=== PATIENT | female | born 1990 | race American Indian/Alaskan Native ===

== ENCOUNTER 2017-06-04 16:58 | Inpatient (IN) | payer MEDICAID ==
[2017-06-04] MEDS ORDERED: Sodium Chloride 0.9% 10 ML Syringe FLUSH PRN ×2 (17:37→20:39)
[2017-06-04] MEDS ORDERED: cefTRIAXone 2 GM Vial IVPUSH ONE (17:38)
[2017-06-04] MEDS ORDERED: Sodium Chloride 0.9% 1,000 ML IV ONE (17:38)
[2017-06-04] MEDS ORDERED: Ondansetron 4 MG/2 ML SDV IV ONE (17:38)
[2017-06-04 18:11] LABS: CHLORIDE,CL 99 mmol/L (101-111); SODIUM,NA 131 mmol/L (135-145)
[2017-06-04] MEDS ORDERED: Acetaminophen 325 MG Tab PO ONE (18:21)
[2017-06-04] MEDS ORDERED: Potassium Chloride 10 MEQ in Premix Bag 1 BAG IV ONE (18:27)
[2017-06-04] MEDS ORDERED: Lidocaine 1% 30 ML SDV INJECT ONE (18:28)
--- NOTE | 2017-06-04 18:37 | EDM.PDOC ---
Scribed by Mally Sherwood 06/04/17 [id number] for Toney Ventura MD ED HPI GENERAL MEDICAL PROBLEM - General Chief Complaint: Flank Pain Stated Complaint: FEVER,VOMITING [id number] Time Seen by Provider: 06/04/17 17:15 Source of Information: Reports: Patient, RN, RN Notes Reviewed History Limitations: Reports: No Limitations - History of Present Illness INITIAL COMMENTS - FREE TEXT/NARRATIVE: Patient presents with onset of symptoms of UTI with rapid development of fever, chills, nausea, vomiting and right flank pain. Today she was unable to keep anything down including Tylenol and came to the ER. She states that the symptoms are similar to a past kidney infection. Duration: Getting Worse Location: Reports: Other (right flank) Quality: Reports: Ache Severity: Severe Improves with: Reports: None Worsens with: Reports: None Associated Symptoms: Reports: Fever/Chills Right Flank Pain Score (Numeric/FACES): 9 - Related Data Allergies Allergy/AdvReac Type Severity Reaction Status Date / Time latex Allergy Burning on Verified 06/04/17 17:04 Urination Home Meds: Home Meds . [No Known Home Meds] 06/06/15 [History] Past Medical History - Past Health History Medical/Surgical History: Denies Medical/Surgical History Psychiatric History: Reports: Anxiety Social & Family History - Family History Family Medical History: Noncontributory Cardiac: Reports: CAD, Hypertension Endocrine/Metabolic: Reports: Diabetes, type II - Tobacco Use Smoking Status *Q: Never Smoker Second Hand Smoke Exposure: No - Caffeine Use Caffeine Use: Reports: None - Alcohol Use Days Per Week of Alcohol Use: 0 - Recreational Drug Use Recreational Drug Use: No Drug Use in Last 12 Months: Yes Recreational Drug Type: Reports: Amphetamines (Speed), Ecstasy, Marijuana/ Hashish Recreational Drug Use Frequency: Not Used In Over 5 Months - Living Situation & Occupation Living situation: Reports: Single Occupation: Employed ED ROS GENERAL - Review of Systems Review Of Systems: ROS reveals no pertinent complaints other than HPI. ED EXAM, RENAL/ - Physical Exam Exam: See Below Exam Limited By: No Limitations General Appearance: Other (acutely ill appearing) Eye Exam: Bilateral Eye: Normal Inspection Ears: Normal External Exam, Normal Canal, Hearing Grossly Normal, Normal TMs Nose: Normal Inspection, Normal Mucosa, No Blood Throat/Mouth: Other (dry oral membranes) Head: Atraumatic, Normocephalic Neck: Normal Inspection, Supple, Non-Tender, Full Range of Motion Respiratory/Chest: No Respiratory Distress Cardiovascular: Regular Rate, Rhythm, Tachycardia GI/Abdominal: Normal Bowel Sounds, Soft, No Distention, Tender (suprapubic tenderness, mild right upper quadrant tenderness. No suprapubic tenderness.). No: Guarding, Rigid, Rebound (Female) Exam: Deferred Rectal (Female) Exam: Deferred Back Exam: Full Range of Motion, CVA Tenderness (R). No: CVA Tenderness (L) Extremities: Normal Inspection, Normal Range of Motion, Non-Tender, Normal Capillary Refill, No Pedal Edema Neurological: Alert, Oriented, CN II-XII Intact, Normal Cognition, Normal Gait, Normal Reflexes, No Motor/Sensory Deficits Psychiatric: Normal Affect, Normal Mood Skin Exam: Warm, Dry, Intact, Normal Color, No Rash Course - Vital Signs Last Recorded V/S: Last Vital Signs Temp 39.8 C H 06/04/17 18:20 Pulse 111 H 06/04/17 17:01 Resp 18 06/04/17 17:01 BP 127/78 06/04/17 17:01 Pulse Ox 100 06/04/17 17:01 - Orders/Labs/Meds Orders: Active Orders 24 hr Category Date Time Status Peripheral IV Care [RC] . DIRECTED Care 06/04/17 17:37 Active CHLAMYDIA AND GONORRHEA BY TMA Routine Lab 06/04/17 17:10 Received CULTURE BLOOD [BC] Stat Lab 06/04/17 17:40 Received CULTURE BLOOD [BC] Stat Lab 06/04/17 18:25 Received CULTURE URINE [RM] Stat Lab 06/04/17 17:10 Received Potassium Chloride [KCl 10 MEQ in Water 100 ML] 10 meq Med 06/04/17 18:27 Active Premix Bag 1 bag IV ONETIME Sodium Chloride 0.9% [Normal Saline] 1,000 ml Med 06/04/17 17:38 Active IV .BOLUS Sodium Chloride 0.9% [Saline Flush] Med 06/04/17 17:37 Active 10 ml FLUSH ASDIRECTED PRN Blood Culture x2 Reflex Set [OM.PC] Stat Oth 06/04/17 17:37 Ordered Peripheral IV Insertion Adult [OM.PC] Stat Oth 06/04/17 17:37 Ordered Medication Orders Sodium Chloride (Normal Saline) 1,000 mls @ 999 mls/hr IV .BOLUS ONE Stop: 06/04/17 18:38 Last Admin: 06/04/17 17:45 Dose: 999 mls/hr Potassium Chloride 10 meq/ (Premix) 100 mls @ 100 mls/hr IV ONETIME ONE Stop: 06/04/17 19:26 Sodium Chloride (Saline Flush) 10 ml FLUSH ASDIRECTED PRN PRN Reason: Keep Vein Open Last Admin: 06/04/17 17:46 Dose: 10 ml Labs: Laboratory Tests 06/04/17 06/04/17 06/04/17 Range/Units 17:10 17:10 17:10 WBC (5.0-10.0) 10^3/uL RBC (4.2-5.4) 10^6/uL Hgb (12.0-16.0) g/dL Hct (37.0-47.0) % MCV (80-100) fL MCH (27.0-34.0) pg MCHC (33.0-35.0) g/dL Plt Count (150-450) 10^3/uL Neut % (Auto) (42.2-75.2) % Lymph % (Auto) (20.5-50.1) % [place] % (Auto) (2-8) % Eos % (Auto) (1.0-3.0) % Baso % (Auto) (0.0-1.0) % Sodium (135-145) mmol/L Potassium (3.6-5.0) mmol/L Chloride (101-111) mmol/L Carbon Dioxide (21.0-31.0) mmol/L Anion Gap BUN (7-18) mg/dL Creatinine (0.6-1.3) mg/dL Est Cr Clr Drug Dosing mL/min Estimated GFR (MDRD) BUN/Creatinine Ratio Glucose (74-105) mg/dL Lactic Acid (0.5-2.2) mmol/L Calcium (8.4-10.2) mg/dl Total Bilirubin (0.2-1.0) mg/dL AST (10-42) IU/L ALT (10-60) IU/L Alkaline Phosphatase (42-121) IU/L Total Protein (6.7-8.2) g/dl Albumin (3.2-5.5) g/dl Globulin Albumin/Globulin Ratio Urine Color Yellow (YELLOW) Urine Appearance Cloudy (CLEAR) Urine pH 6.0 (5.0-9.0) Ur Specific [place] 1.020 (1.005-1.030) Urine Protein 100 H (NEGATIVE) Urine Glucose (UA) Negative (NEGATIVE) Urine Ketones 80 H (NEGATIVE) Urine Occult Blood Moderate H (NEGATIVE) Urine Nitrite Negative (NEGATIVE) Urine Bilirubin Small H (NEGATIVE) Urine Urobilinogen 2.0 H (0.2-1.0) mg/dL Ur Leukocyte Esterase Small H (NEGATIVE) Urine RBC 20-30 H /HPF Urine WBC Semi-packed H (0-5/HPF) /HPF Ur Epithelial Cells Many H /HPF Urine Bacteria Many H (0-FEW/HPF) /HPF Urine HCG, Qual Negative Urine Opiates Screen Negative (NEGATIVE) Ur Oxycodone Screen Positive H (NEGATIVE) Urine Methadone Screen Negative (NEGATIVE) Ur Barbiturates Screen Negative (NEGATIVE) U Tricyclic Antidepress Negative (NEGATIVE) Ur Phencyclidine Scrn Negative (NEGATIVE) Ur Amphetamine Screen Negative (NEGATIVE) U Methamphetamines Scrn Negative (NEGATIVE) Urine MDMA Screen Negative (NEGATIVE) U Benzodiazepines Scrn Negative (NEGATIVE) Urine Cocaine Screen Negative (NEGATIVE) U Marijuana (THC) Screen Positive H (NEGATIVE) 06/04/17 06/04/17 06/04/17 Range/Units 17:40 17:40 17:40 WBC 21.5 H (5.0-10.0) 10^3/uL RBC 4.17 L (4.2-5.4) 10^6/uL Hgb 12.8 (12.0-16.0) g/dL Hct 36.2 L (37.0-47.0) % MCV 86.8 D (80-100) fL MCH 30.7 (27.0-34.0) pg MCHC 35.4 H (33.0-35.0) g/dL Plt Count 198 D (150-450) 10^3/uL Neut % (Auto) 88.5 H (42.2-75.2) % Lymph % (Auto) 2.7 L (20.5-50.1) % [place] % (Auto) 8.8 H (2-8) % Eos % (Auto) 0.0 L (1.0-3.0) % Baso % (Auto) 0.0 (0.0-1.0) % Sodium 131 L (135-145) mmol/L Potassium 2.7 L (3.6-5.0) mmol/L Chloride 99 L (101-111) mmol/L Carbon Dioxide 20.0 L (21.0-31.0) mmol/L Anion Gap 14.7 BUN 13 (7-18) mg/dL Creatinine 0.5 L (0.6-1.3) mg/dL Est Cr Clr Drug Dosing 153.43 mL/min Estimated GFR (MDRD) > 60 BUN/Creatinine Ratio 26.00 Glucose 115 H (74-105) mg/dL Lactic Acid 1.5 (0.5-2.2) mmol/L Calcium 8.8 (8.4-10.2) mg/dl Total Bilirubin 1.4 H (0.2-1.0) mg/dL AST 22 (10-42) IU/L ALT 15 (10-60) IU/L Alkaline Phosphatase 59 (42-121) IU/L Total Protein 7.5 (6.7-8.2) g/dl Albumin 3.9 (3.2-5.5) g/dl Globulin 3.6 Albumin/Globulin Ratio 1.08 Urine Color (YELLOW) Urine Appearance (CLEAR) Urine pH (5.0-9.0) Ur Specific [place] (1.005-1.030) Urine Protein (NEGATIVE) Urine Glucose (UA) (NEGATIVE) Urine Ketones (NEGATIVE) Urine Occult Blood (NEGATIVE) Urine Nitrite (NEGATIVE) Urine Bilirubin (NEGATIVE) Urine Urobilinogen (0.2-1.0) mg/dL Ur Leukocyte Esterase (NEGATIVE) Urine RBC /HPF Urine WBC (0-5/HPF) /HPF Ur Epithelial Cells /HPF Urine Bacteria (0-FEW/HPF) /HPF Urine HCG, Qual Urine Opiates Screen (NEGATIVE) Ur Oxycodone Screen (NEGATIVE) Urine Methadone Screen (NEGATIVE) Ur Barbiturates Screen (NEGATIVE) U Tricyclic Antidepress (NEGATIVE) Ur Phencyclidine Scrn (NEGATIVE) Ur Amphetamine Screen (NEGATIVE) U Methamphetamines Scrn (NEGATIVE) Urine MDMA Screen (NEGATIVE) U Benzodiazepines Scrn (NEGATIVE) Urine Cocaine Screen (NEGATIVE) U Marijuana (THC) Screen (NEGATIVE) Meds: Medications Generic Name Dose Route Start Last Admin Trade Name Freq PRN Reason Stop Dose Admin Sodium Chloride 1,000 mls @ 999 mls/hr 06/04/17 17:38 06/04/17 17:45 Normal Saline IV 06/04/17 18:38 999 mls/hr .BOLUS ONE Administration Potassium Chloride 10 meq/ 100 mls @ 100 mls/hr 06/04/17 18:27 Premix IV 06/04/17 19:26 ONETIME ONE Sodium Chloride 10 ml 06/04/17 17:37 06/04/17 17:46 Saline Flush FLUSH 10 ml ASDIRECTED PRN Administration Keep Vein Open Discontinued Medications Generic Name Dose Route Start Last Admin Trade Name Freq PRN Reason Stop Dose Admin Acetaminophen 650 mg 06/04/17 18:21 06/04/17 18:26 Tylenol PO 06/04/17 18:22 650 mg NOW ONE Administration Ceftriaxone Sodium 2 gm 06/04/17 17:38 06/04/17 17:53 Rocephin IVPUSH 06/04/17 17:39 2 gm ONETIME ONE Administration Lidocaine HCl 1 ml 06/04/17 18:28 Xylocaine-Mpf 1% INJECT 06/04/17 18:29 ONETIME ONE Ondansetron HCl 4 mg 06/04/17 17:38 06/04/17 17:46 Zofran IV 06/04/17 17:39 4 mg ONETIME ONE Administration Departure - Departure Time of Disposition: 18:35 (admitted to Dr. Lewis) Disposition: Admitted As Inpatient 66 Condition: Serious Clinical Impression: Pyelonephritis - Discharge Information Forms: ED Department Discharge - My Orders Last 24 Hours: My Active Orders 06/04/17 17:10 CHLAMYDIA AND GONORRHEA BY TMA Routine CULTURE URINE [RM] Stat 06/04/17 17:37 Peripheral IV Care [RC] . DIRECTED Sodium Chloride 0.9% [Saline Flush] 10 ml FLUSH ASDIRECTED PRN Blood Culture x2 Reflex Set [OM.PC] Stat Peripheral IV Insertion Adult [OM.PC] Stat 06/04/17 17:38 Sodium Chloride 0.9% [Normal Saline] 1,000 ml IV .BOLUS 06/04/17 17:40 CULTURE BLOOD [BC] Stat 06/04/17 18:25 CULTURE BLOOD [BC] Stat 06/04/17 18:27 Potassium Chloride [KCl 10 MEQ in Water 100 ML] 10 meq Premix Bag 1 bag IV ONETIME - Assessment/Plan Last 24 Hours: My Active Orders 06/04/17 17:10 CHLAMYDIA AND GONORRHEA BY TMA Routine CULTURE URINE [RM] Stat 06/04/17 17:37 Peripheral IV Care [RC] . DIRECTED Sodium Chloride 0.9% [Saline Flush] 10 ml FLUSH ASDIRECTED PRN Blood Culture x2 Reflex Set [OM.PC] Stat Peripheral IV Insertion Adult [OM.PC] Stat 06/04/17 17:38 Sodium Chloride 0.9% [Normal Saline] 1,000 ml IV .BOLUS 06/04/17 17:40 CULTURE BLOOD [BC] Stat 06/04/17 18:25 CULTURE BLOOD [BC] Stat 06/04/17 18:27 Potassium Chloride [KCl 10 MEQ in Water 100 ML] 10 meq Premix Bag 1 bag IV ONETIME I have read and agree with the documentation that has been completed regarding this visit. By signing this record, I attest that the documentation was completed in my physical presence and is an accurate record of the encounter.
[2017-06-04] MEDS ORDERED: Ondansetron 4 MG/2 ML SDV IVPUSH PRN (20:39)
[2017-06-04] MEDS ORDERED: Lactated Ringers 1,000 ML IV SCH (20:45)
--- NOTE | 2017-06-04 20:55 | PCM.HP ---
H&P History of Present Illness - General Date of Service: 06/04/17 Admit Problem/Dx: Admission Diagnosis/Problem Admission Diagnosis/Problem Pyelonephritis Source of Information: Patient History Limitations: Reports: No Limitations - History of Present Illness Initial Comments - Free Text/Narative: 26 yo F presents with right flank pain, fever, nausea/vomiting, dysuria of one day duration. Symptoms started yesterday evening. Noticed fever, chills first. Then abdominal pain, located in right flank, 9/10 in max intensity, "achy", radiates to back Vomiting, several episodes (>10 episodes yesterday, improved today) Associated dysuria yesterday, improved today. SH: non-smoker of cigarettes. Onset of Symptoms: Reports: Sudden Symptom Onset Date: 06/03/17 Location: Reports: Abdomen Quality: Reports: Ache Severity: Severe Improves with: Reports: None Worsens with: Reports: None Associated Symptoms: Reports: Fever/Chills, Nausea/Vomiting Right Flank Pain Score (Numeric/FACES): 9 - Related Data Allergies/Adverse Reactions: Allergies Allergy/AdvReac Type Severity Reaction Status Date / Time latex Allergy Burning on Verified 06/04/17 17:04 Urination Home Medications: Home Meds . [No Known Home Meds] 06/06/15 [History] Past Medical History - Past Health History Medical/Surgical History: Denies Medical/Surgical History Genitourinary History: Reports: Pyelonephritis, UTI, Recurrent [employer] History: Reports: None Psychiatric History: Reports: Anxiety Hematologic History: Reports: Iron Deficiency - Infectious Disease History Infectious Disease History: Reports: Hepatitis C - Past Surgical History Female Surgical History: Reports: None Social & Family History - Family History Family Medical History: Noncontributory Cardiac: Reports: CAD, Hypertension Endocrine/Metabolic: Reports: Diabetes, type II - Tobacco Use Smoking Status *Q: Former Smoker Years of Tobacco use: 4 Packs/Tins Daily: 0.8 Used Tobacco, but Quit: Yes Month Tobacco Last Used: february Second Hand Smoke Exposure: No - Caffeine Use Caffeine Use: Reports: Soda - Alcohol Use Days Per Week of Alcohol Use: 0 - Recreational Drug Use Recreational Drug Use: No Drug Use in Last 12 Months: Yes Recreational Drug Type: Reports: Amphetamines (Speed), Ecstasy, Marijuana/ Hashish Other Recreational Drug Type: positive for oxy et THC Recreational Drug Use Frequency: Not Used In Over 5 Months - Living Situation & Occupation Living situation: Reports: Single Occupation: Employed H&P Review of Systems - Review of Systems: Review Of Systems: See Below General: Reports: Fever HEENT: Reports: No Symptoms Pulmonary: Reports: No Symptoms Cardiovascular: Reports: No Symptoms Gastrointestinal: Reports: Abdominal Pain Genitourinary: Reports: Dysuria Musculoskeletal: Reports: No Symptoms Skin: Reports: No Symptoms Psychiatric: Reports: No Symptoms Neurological: Reports: No Symptoms Exam - Exam Exam: See Below - Vital Signs Vital Signs: Last Vital Signs Temp 38.2 C H 06/04/17 19:25 Pulse 89 06/04/17 19:25 Resp 16 06/04/17 19:25 BP 102/58 L 06/04/17 19:25 Pulse Ox 98 06/04/17 19:25 Weight: 59.511 kg - Exam General: Alert, Oriented, 4 HEENT: PERRLA, Hearing Intact, Mucosa Moist & [place], Nares Patent, Normal Nasal Septum, Posterior Pharynx Clear, Conjunctiva Clear, EOMI, EACs Clear, TMs Clear Neck: Supple, Trachea Midline, 2 Lungs: Clear to Auscultation, Normal Respiratory Effort Cardiovascular: Regular Rate, Regular Rhythm GI/Abdominal Exam: Normal Bowel Sounds, Soft, Non-Tender, No Organomegaly, No Distention, No Abnormal Bruit, No Mass, Pelvis Stable, Other (positive costovertebral angle tenderness) Back Exam: Normal Inspection, Full Range of Motion, NT Extremities: Normal Inspection, Normal Range of Motion, Non-Tender, No Pedal Edema, Normal Capillary Refill Skin: Warm, Dry, Intact Neurological: Cranial Nerves Intact, Reflexes Equal Bilateral Neuro Extensive - Mental Status: Alert, Oriented x3, Normal Mood/Affect, Normal Cognition Neuro Extensive - Motor, Sensory, Reflexes: CN II-XII Intact, Normal Gait, Normal Reflexes Psychiatric: Alert, Normal Affect, Normal Mood - Patient Data Result Diagrams: 06/04/17 17:40 06/04/17 17:40 *Q Meaningful Use (ADM) - VTE *Q VTE Criteria *Q: - Stroke *Q Stroke Criteria *Q: - AMI *Q AMI Criteria *Q: - Problem List (1) Pyelonephritis SNOMED Code(s): 81855302 ICD Code: N12 - TUBULO-INTERSTITIAL NEPHRITIS, NOT SPCF ACUTE OR CHRONIC Status: Acute Current Visit: Yes (2) Hypokalemia SNOMED Code(s): 80952271 ICD Code: E87.6 - HYPOKALEMIA Status: Acute Priority: Medium Current Visit: No Onset Date: ~12/29/15 Problem List Initiated/Reviewed/Updated: Yes Orders Last 24hrs: Active Orders 24 hr Category Date Time Status Patient Status [ADT] Routine ADT 06/04/17 20:39 Ordered Ambulate [RC] ASDIRECTED Care 06/04/17 20:39 Ordered Ambulate [RC] PER UNIT ROUTINE Care 06/04/17 20:41 Ordered Intake and Output [RC] QSHIFT Care 06/04/17 20:40 Ordered Oxygen Therapy [RC] PRN Care 06/04/17 20:39 Ordered Peripheral IV Care [RC] . DIRECTED Care 06/04/17 20:43 Ordered Up ad Martha [RC] ASDIRECTED Care 06/04/17 20:39 Ordered VTE/DVT Education [RC] PER UNIT ROUTINE Care 06/04/17 20:39 Ordered Vital Signs [RC] Q4H Care 06/04/17 20:39 Ordered Regular Diet [DIET] Diet 06/04/17 Dinner Ordered BASIC METABOLIC PANEL,BMP [CHEM] AM Lab 06/05/17 05:11 Ordered CBC WITH AUTO DIFF [HEME] AM Lab 06/05/17 05:11 Ordered Acetaminophen [Tylenol] Med 06/04/17 20:39 Ordered 650 mg PO Q4H PRN D5 1/2 NS w/ 40 mEq/L KCl 1,000 ml Med 06/04/17 21:00 Ordered IV ASDIRECTED Ibuprofen [Motrin] Med 06/04/17 20:39 Ordered 400 mg PO Q6H PRN Ondansetron [Zofran] Med 06/04/17 20:39 Ordered 4 mg IVPUSH Q4H PRN Potassium Chloride [Klor-Con 10] Med 06/04/17 20:48 Ordered 40 meq PO BIDMEALS Sodium Chloride 0.9% [Saline Flush] Med 06/04/17 20:39 Ordered 10 ml FLUSH ASDIRECTED PRN cefTRIAXone [Rocephin] 1,000 mg Med 06/05/17 06:00 Ordered Sodium Chloride 0.9% [Normal Saline] 50 ml IV Q24H Peripheral IV Insertion Adult [OM.PC] Routine Oth 06/04/17 20:39 Ordered Saline Lock Insert [OM.PC] Routine Oth 06/04/17 20:39 Ordered Resuscitation Status Routine Resus Stat 06/04/17 20:39 Ordered Medication Orders Acetaminophen (Tylenol) 650 mg PO Q4H PRN PRN Reason: Pain (Mild 1-3)/fever Ceftriaxone Sodium 1,000 mg/ (Sodium Chloride) 50 mls @ 100 mls/hr IV Q24H MIGUE Potassium Chloride/Dextrose/Sod Cl (D5 1/2 Ns W/ 40 Meq/L Kcl) 1,000 mls @ 150 mls/hr IV ASDIRECTED MIGUE Ibuprofen (Motrin) 400 mg PO Q6H PRN PRN Reason: Pain (moderate 4-6) Ondansetron HCl (Zofran) 4 mg IVPUSH Q4H PRN PRN Reason: Nausea/Vomiting Potassium Chloride (Klor-Con 10) 40 meq PO BIDMEALS MIGUE Stop: 06/05/17 08:01 Sodium Chloride (Saline Flush) 10 ml FLUSH ASDIRECTED PRN PRN Reason: Keep Vein Open Last Admin: 06/04/17 17:46 Dose: 10 ml Sodium Chloride (Saline Flush) 10 ml FLUSH ASDIRECTED PRN PRN Reason: Keep Vein Open Assessment/Plan Comment:: # Pyelonephritis Admit to inpatient service Follow up blood cultures, urine cultures IV ceftriaxone # Hypokalemia K 2.7 replenish potassium IV and orally recheck K in the am # DVT ppx ambulate patient (low Catrachita score) # Code status Full code.
[2017-06-04] MEDS: Potassium Chloride 10 MEQ Tab.ER PO SCH (22:02)
[2017-06-04] MEDS: D5 1/2 NS w/ 40 mEq/L KCl 1,000 ML IV SCH (22:04)
[2017-06-05] MEDS: Acetaminophen 325 MG Tab PO PRN ×4 (01:21→19:59)
[2017-06-05] MEDS ORDERED: cefTRIAXone 1,000 MG in Sodium Chloride 0.9% 50 ML IV SCH ×5 (06:00→17:00)
[2017-06-05] MEDS: Ibuprofen 400 MG Tab PO PRN ×2 (06:40→17:19)
[2017-06-05 07:05] LABS: CHLORIDE,CL 103 mmol/L (101-111); SODIUM,NA 133 mmol/L (135-145)
[2017-06-05] MEDS: Potassium Chloride 10 MEQ Tab.ER PO SCH (08:06)
[2017-06-05] MEDS: D5 1/2 NS w/ 40 mEq/L KCl 1,000 ML IV SCH ×2 (08:06→19:57)
[2017-06-05] MEDS: Phenazopyridine 95 MG Tab PO PRN ×2 (10:21→20:48)
--- NOTE | 2017-06-05 10:33 | PCM.PN ---
- General Info Date of Service: 06/05/17 Admission Dx/Problem (Free Text): Admission Diagnosis/Problem Admission Diagnosis/Problem Pyelonephritis Subjective Update: Complains of dysuria - Review of Systems General: Reports: No Symptoms HEENT: Reports: No Symptoms Pulmonary: Reports: No Symptoms Cardiovascular: Reports: No Symptoms Gastrointestinal: Reports: No Symptoms Genitourinary: Reports: Dysuria Musculoskeletal: Reports: No Symptoms Skin: Reports: No Symptoms - Patient Data Vitals - Most Recent: Last Vital Signs Temp 37.3 C 06/05/17 08:21 Pulse 70 06/05/17 08:21 Resp 20 06/05/17 08:21 BP 105/51 L 06/05/17 08:21 Pulse Ox 98 06/05/17 08:21 Weight - Most Recent: 59.511 kg I&O - Last 24 Hours: Intake & Output 06/04/17 06/05/17 06/05/17 22:59 06:59 14:59 Intake Total 395 825 Balance 395 825 Lab Results Last 24 Hours: Laboratory Results - last 24 hr 06/05/17 06/05/17 Range/Units 06:24 06:24 WBC 19.9 H (5.0-10.0) 10^3/uL RBC 3.87 L (4.2-5.4) 10^6/uL Hgb 11.9 L (12.0-16.0) g/dL Hct 33.9 L (37.0-47.0) % MCV 87.6 (80-100) fL MCH 30.7 (27.0-34.0) pg MCHC 35.1 H (33.0-35.0) g/dL Plt Count 199 (150-450) 10^3/uL Neut % (Auto) 83.3 H (42.2-75.2) % Lymph % (Auto) 6.0 L (20.5-50.1) % [place] % (Auto) 10.6 H (2-8) % Eos % (Auto) 0.0 L (1.0-3.0) % Baso % (Auto) 0.1 (0.0-1.0) % Sodium 133 L (135-145) mmol/L Potassium 3.3 L (3.6-5.0) mmol/L Chloride 103 (101-111) mmol/L Carbon Dioxide 23.0 (21.0-31.0) mmol/L Anion Gap 10.3 BUN 7 (7-18) mg/dL Creatinine 0.5 L (0.6-1.3) mg/dL Est Cr Clr Drug Dosing 153.43 mL/min Estimated GFR (MDRD) > 60 Glucose 132 H (74-105) mg/dL Calcium 8.0 L (8.4-10.2) mg/dl Med Orders - Current: Current Medications Acetaminophen (Tylenol) 650 mg PO Q4H PRN PRN Reason: Pain (Mild 1-3)/fever Last Admin: 06/05/17 08:12 Dose: 650 mg Potassium Chloride/Dextrose/Sod Cl (D5 1/2 Ns W/ 40 Meq/L Kcl) 1,000 mls @ 150 mls/hr IV ASDIRECTED MIGUE Last Admin: 06/05/17 08:06 Dose: 150 mls/hr Ceftriaxone Sodium 1,000 mg/ (Sodium Chloride) 50 mls @ 100 mls/hr IV Q24H MIGUE Ibuprofen (Motrin) 400 mg PO Q6H PRN PRN Reason: Pain (moderate 4-6) Last Admin: 06/05/17 06:40 Dose: 400 mg Ondansetron HCl (Zofran) 4 mg IVPUSH Q4H PRN PRN Reason: Nausea/Vomiting Phenazopyridine HCl (Urinary Pain Relief) 95 mg PO BID PRN PRN Reason: Abdominal Pain Last Admin: 06/05/17 10:21 Dose: 95 mg Sodium Chloride (Saline Flush) 10 ml FLUSH ASDIRECTED PRN PRN Reason: Keep Vein Open Last Admin: 06/04/17 17:46 Dose: 10 ml Sodium Chloride (Saline Flush) 10 ml FLUSH ASDIRECTED PRN PRN Reason: Keep Vein Open Discontinued Medications Acetaminophen (Tylenol) 650 mg PO NOW ONE Stop: 06/04/17 18:22 Last Admin: 06/04/17 18:26 Dose: 650 mg Ceftriaxone Sodium (Rocephin) 2 gm IVPUSH ONETIME ONE Stop: 06/04/17 17:39 Last Admin: 06/04/17 17:53 Dose: 2 gm Sodium Chloride (Normal Saline) 1,000 mls @ 999 mls/hr IV .BOLUS ONE Stop: 06/04/17 18:38 Last Admin: 06/04/17 17:45 Dose: 999 mls/hr Potassium Chloride 10 meq/ (Premix) 100 mls @ 100 mls/hr IV ONETIME ONE Stop: 06/04/17 19:26 Last Admin: 06/04/17 18:38 Dose: 100 mls/hr Lactated Ringer's (Ringers, Lactated) 1,000 mls @ 125 mls/hr IV ASDIRECTED [facility] Ceftriaxone Sodium 1,000 mg/ (Sodium Chloride) 50 mls @ 100 mls/hr IV Q24H [facility] Ceftriaxone Sodium 1,000 mg/ (Sodium Chloride) 50 mls @ 100 mls/hr IV Q24H [facility] Lidocaine HCl (Xylocaine-Mpf 1%) 1 ml INJECT ONETIME ONE Stop: 06/04/17 18:29 Last Admin: 06/04/17 18:37 Dose: 1 ml Ondansetron HCl (Zofran) 4 mg IV ONETIME ONE Stop: 06/04/17 17:39 Last Admin: 06/04/17 17:46 Dose: 4 mg Potassium Chloride (Klor-Con 10) 40 meq PO BIDMEALS [facility] Stop: 06/05/17 08:01 Last Admin: 06/05/17 08:06 Dose: 40 meq - Exam General: Alert, Oriented HEENT: Pupils Equal, Pupils Reactive, EOMI, Mucous Membr. Moist/[place] Neck: Supple Lungs: Clear to Auscultation Cardiovascular: Regular Rate, Regular Rhythm GI/Abdominal Exam: Normal Bowel Sounds, Soft, Non-Tender, No Organomegaly, No Distention, No Abnormal Bruit, No Mass, Pelvis Stable - Problem List & Annotations (1) Pyelonephritis SNOMED Code(s): 76660618 Code(s): N12 - TUBULO-INTERSTITIAL NEPHRITIS, NOT SPCF ACUTE OR CHRONIC Status: Acute Current Visit: Yes (2) Hypokalemia SNOMED Code(s): 21395133 Code(s): E87.6 - HYPOKALEMIA Status: Acute Priority: Medium Current Visit: No Onset Date: ~12/29/15 - Problem List Review Problem List Initiated/Reviewed/Updated: Yes - My Orders Last 24 Hours: My Active Orders 06/04/17 21:00 D5 1/2 NS w/ 40 mEq/L KCl 1,000 ml IV ASDIRECTED 06/05/17 10:07 Phenazopyridine [Urinary Pain Relief] 95 mg PO BID PRN 06/05/17 17:00 cefTRIAXone [Rocephin] 1,000 mg Sodium Chloride 0.9% [Normal Saline] 50 ml IV Q24H - Plan Plan:: # Pyelonephritis Follow up blood cultures, urine cultures IV ceftriaxone # Hypokalemia replenish potassium IV and orally recheck K in the am # DVT ppx ambulate patient (low Catrachita score) # Code status Full code.
[2017-06-05] MEDS ORDERED: Potassium Chloride 10 MEQ Tab.ER PO ONE (10:36)
[2017-06-06] MEDS: Ibuprofen 400 MG Tab PO PRN (04:56)
[2017-06-06] MEDS: D5 1/2 NS w/ 40 mEq/L KCl 1,000 ML IV SCH (05:43)
[2017-06-06 06:59] LABS: CHLORIDE,CL 109 mmol/L (101-111); SODIUM,NA 137 mmol/L (135-145)
--- NOTE | 2017-06-06 10:41 | PCM.DCSUM1 ---
Discharge Summary - Hospital Course Free Text/Narrative:: 26 yo F with no significant PMH who presents with fever, dysuria and abdoominal pain. Found to have pyelonephritis. Treated with IV abx. Urine cx shows E coli, delgadillo sensitive. Discharged on oral Keflex and will recieve total of 10 days antibiotic treatment. - Discharge Data Discharge Date: 06/06/17 Discharge Disposition: Home, Self-Care 01 Condition: Good - Discharge Diagnosis/Problem(s) (1) Pyelonephritis SNOMED Code(s): 17805394 ICD Code: N12 - TUBULO-INTERSTITIAL NEPHRITIS, NOT SPCF ACUTE OR CHRONIC Status: Acute Current Visit: Yes (2) Hypokalemia SNOMED Code(s): 27606871 ICD Code: E87.6 - HYPOKALEMIA Status: Acute Priority: Medium Current Visit: No Onset Date: ~12/29/15 - Patient Instructions Diet: Usual Diet as Tolerated Activity: As Tolerated Showering/Bathing: May Shower Notify Provider of: Fever - Discharge Plan Prescriptions/Med Rec: Cephalexin [IJD: Cephalexin] 500 mg PO Q6HR 7 Days capsule Home Medications: Home Meds Cephalexin [IJD: Cephalexin] 500 mg PO Q6HR 7 Days capsule 06/06/17 [Rx] Forms: ED Department Discharge Referrals: Bobby Farfan [Primary Care Provider] - - Discharge Summary/Plan Comment DC Time >30 min.: Yes - Patient Data Vitals - Most Recent: Last Vital Signs Temp 37.6 C 06/06/17 06:00 Pulse 84 06/06/17 04:45 Resp 20 06/06/17 04:45 BP 104/44 L 06/06/17 04:45 Pulse Ox 100 06/06/17 04:45 Weight - Most Recent: 59.511 kg I&O - Last 24 hours: Intake & Output 06/05/17 06/06/17 06/06/17 22:59 06:59 14:59 Intake Total 515 834 Output Total 75 600 Balance 440 234 Lab Results - Last 24 hrs: Laboratory Results - last 24 hr 06/06/17 Range/Units 06:25 Sodium 137 (135-145) mmol/L Potassium 3.9 (3.6-5.0) mmol/L Chloride 109 (101-111) mmol/L Carbon Dioxide 22.0 (21.0-31.0) mmol/L Anion Gap 9.9 BUN 6 L (7-18) mg/dL Creatinine 0.4 L (0.6-1.3) mg/dL Est Cr Clr Drug Dosing 191.78 mL/min Estimated GFR (MDRD) > 60 Glucose 117 H (74-105) mg/dL Calcium 8.2 L (8.4-10.2) mg/dl Med Orders - Current: Current Medications Acetaminophen (Tylenol) 650 mg PO Q4H PRN PRN Reason: Pain (Mild 1-3)/fever Last Admin: 06/05/17 19:59 Dose: 650 mg Cephalexin (Keflex) 500 mg PO Q6HR [facility] Stop: 06/13/17 12:01 Potassium Chloride/Dextrose/Sod Cl (D5 1/2 Ns W/ 40 Meq/L Kcl) 1,000 mls @ 100 mls/hr IV ASDIRECTED [facility]IGUE Last Admin: 06/06/17 05:43 Dose: 100 mls/hr Ibuprofen (Motrin) 400 mg PO Q6H PRN PRN Reason: Pain (moderate 4-6) Last Admin: 06/06/17 04:56 Dose: 400 mg Ondansetron HCl (Zofran) 4 mg IVPUSH Q4H PRN PRN Reason: Nausea/Vomiting Phenazopyridine HCl (Urinary Pain Relief) 95 mg PO BID PRN PRN Reason: Abdominal Pain Last Admin: 06/05/17 20:48 Dose: 95 mg Sodium Chloride (Saline Flush) 10 ml FLUSH ASDIRECTED PRN PRN Reason: Keep Vein Open Last Admin: 06/04/17 17:46 Dose: 10 ml Sodium Chloride (Saline Flush) 10 ml FLUSH ASDIRECTED PRN PRN Reason: Keep Vein Open Discontinued Medications Acetaminophen (Tylenol) 650 mg PO NOW ONE Stop: 06/04/17 18:22 Last Admin: 06/04/17 18:26 Dose: 650 mg Ceftriaxone Sodium (Rocephin) 2 gm IVPUSH ONETIME ONE Stop: 06/04/17 17:39 Last Admin: 06/04/17 17:53 Dose: 2 gm Sodium Chloride (Normal Saline) 1,000 mls @ 999 mls/hr IV .BOLUS ONE Stop: 06/04/17 18:38 Last Admin: 06/04/17 17:45 Dose: 999 mls/hr Potassium Chloride 10 meq/ (Premix) 100 mls @ 100 mls/hr IV ONETIME ONE Stop: 06/04/17 19:26 Last Admin: 06/04/17 18:38 Dose: 100 mls/hr Lactated Ringer's (Ringers, Lactated) 1,000 mls @ 125 mls/hr IV ASDIRECTED [facility] Ceftriaxone Sodium 1,000 mg/ (Sodium Chloride) 50 mls @ 100 mls/hr IV Q24H [facility] Potassium Chloride/Dextrose/Sod Cl (D5 1/2 Ns W/ 40 Meq/L Kcl) 1,000 mls @ 150 mls/hr IV ASDIRECTED [facility] Last Admin: 06/05/17 08:06 Dose: 100 mls/hr Ceftriaxone Sodium 1,000 mg/ (Sodium Chloride) 50 mls @ 100 mls/hr IV Q24H [facility] Ceftriaxone Sodium 1,000 mg/ (Sodium Chloride) 50 mls @ 100 mls/hr IV Q24H [facility] Last Admin: 06/05/17 17:20 Dose: 100 mls/hr Lidocaine HCl (Xylocaine-Mpf 1%) 1 ml INJECT ONETIME ONE Stop: 06/04/17 18:29 Last Admin: 06/04/17 18:37 Dose: 1 ml Ondansetron HCl (Zofran) 4 mg IV ONETIME ONE Stop: 06/04/17 17:39 Last Admin: 06/04/17 17:46 Dose: 4 mg Potassium Chloride (Klor-Con 10) 40 meq PO BIDMEALS [facility] Stop: 06/05/17 08:01 Last Admin: 06/05/17 08:06 Dose: 40 meq Potassium Chloride (Klor-Con 10) 40 meq PO ONETIME ONE Stop: 06/05/17 10:37 Last Admin: 06/05/17 11:52 Dose: Not Given *Q Meaningful Use (DIS) - VTE *Q VTE Criteria *Q: - Stroke *Q Stroke Criteria *Q: - AMI *Q AMI Criteria *Q:
[2017-06-06] MEDS ORDERED: Cephalexin 500 MG Cap PO SCH (12:00)
[2017-06-06 13:51] VITALS: BP 104/83
== END 2017-06-06 11:35 | disposition home or self-care (01) | DRG 690 ==
LOC: DL.ED 16:58 → UNDOADMIN 18:39 → DL.MS 18:39 → EEVIPCON 20:39
PROVIDERS: ADMIT Hospitalist; ATTEND Hospitalist
DX: N12 Tubulo-interstitial nephritis, not specified as acute or chronic (principal); E87.6 Hypokalemia; Z91.040 Latex allergy status; Z87.891 Personal history of nicotine dependence; B96.20 Unspecified Escherichia coli [E. coli] as the cause of diseases classified elsewhere
CPT/HCPCS: 36415; 80053; 80305; 81001; 81025; 83605; 85025; 87040 ×2; 87086; 87186; 87491; 87591; 96361; 96365; 96375; 99284; A9270; J0696; J2405; J3480; J7030; J7050; 80048

== ENCOUNTER 2020-10-22 07:40 | Inpatient (IN) | payer MEDICAID ==
[~2020-10-22 07:40] MED LIST: Acetaminophen 325 MG Tab PO PRN; Carboprost Tromethamine 250 MCG/1 ML Amp IM PRN; Famotidine 20 MG Tab PO PRN; Lactated Ringers 1,000 ML IV ONE; Lactated Ringers 1,000 ML IV SCH; Lidocaine 1% 30 ML SDV INJECT PRN; Methylergonovine 0.2 MG/1 ML Amp IM PRN; Misoprostol 400 MCG (4 X 100 MCG TAB) RECTAL PRN; Naloxone 2 MG/2 ML Syringe IVPUSH PRN; Ondansetron 4 MG/2 ML SDV IVPUSH PRN; Oxytocin/Normal Saline 30 UNIT/500 ML BAG IV SCH; Promethazine 25 MG/ML SDV IM PRN; Sodium Chloride 0.9% 10 ML Syringe FLUSH PRN; Tranexamic Acid 1,000 MG in Sodium Chloride 0.9% 100 ML IV PRN; ePHEDrine 50 MG/ML SDV IVPUSH PRN; fentaNYL 100 MCG/2 ML SDV IVPUSH PRN
[2020-10-22] MEDS ORDERED: Simethicone 80 MG Tab.Chew PO PRN (17:33)
[2020-10-22] MEDS ORDERED: Benzocaine/Menthol 20%-0.5% Spray 78 GM Cannister TOP PRN (17:33)
[2020-10-22] MEDS ORDERED: Oxytocin 10 Units/1 ML SDV IM PRN (17:33)
[2020-10-22] MEDS ORDERED: Measles, Mumps & Rubella Vaccine 0.5 ML SDV SUBCUT ONE (17:35)
[2020-10-22] MEDS: Docusate Sodium 100 MG Cap PO PRN (19:36)
[2020-10-22] MEDS: Ibuprofen 800 MG Tab PO PRN (19:36)
[2020-10-22] MEDS: Acetaminophen 325 MG Tab PO PRN (22:47)
--- NOTE | 2020-10-23 00:23 | DEL ---
DATE: 10/22/2020 PREPROCEDURE DIAGNOSES: 1. 40-1/7 weeks' intrauterine by last menstrual period. 2. 5, para 2-0-2-2. 3. High-risk . 4. Blood type A negative, rubella immune, group B strep negative. 5. History of hemorrhage prior . 6. History of spontaneous x2. 7. Size less than dates, eval with Maternal- Medicine reassuring. 8. History of bacterial vaginosis. 9. History of chlamydia, treated, and test of cure remained positive, so she was treated a second time approximately 3 weeks ago. 10.Anxiety and depression. 11.Hepatitis C positive. 12.History of marijuana use. 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 POSTPROCEDURE DIAGNOSES: 1. 40-1/7 weeks' intrauterine by last menstrual period. 2. 5, para 2-0-2-2. 3. High-risk . 4. Blood type A negative, rubella immune, group B strep negative. 5. History of hemorrhage prior . 6. History of spontaneous x2. 7. Size less than dates, eval with Maternal- Medicine reassuring. 8. History of bacterial vaginosis. 9. History of chlamydia, treated, and test of cure remained positive, so she was treated a second time approximately 3 weeks ago. 10.Anxiety and depression. 11.Hepatitis C positive. 12.History of marijuana use. 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 14.Status post spontaneous vaginal delivery without complications. HISTORY OF PRESENT ILLNESS: A 30-year-old female with the above-listed diagnoses was brought into the hospital this morning for induction of labor performed with artificial rupture of membranes and augmentation with Pitocin. This resulted in a delivery with details as below. PROCEDURE DETAILS: With the patient in dorsal lithotomy position, she delivered a viable female infant in OA position. Baby was dried, stimulated, and mouth suctioned and then baby placed upon mother's abdomen. After a delay, 3-vessel umbilical cord was doubly clamped and cut. Cord blood sample was then obtained and placenta delivered by gentle cord traction and concomitant uterine massage. There was some brisk bleeding controlled with a dose of Methergine and running the Pitocin at 999 as well as fundal massage. No lacerations that needed any repair, and she tolerated the procedure well. She only had 1 dose of fentanyl prior to delivery. No intrathecal. FINDINGS: Viable female with score of 8 and 9; weighing 2977 g, 6 pounds 9 ounces; length 19-1/2 inches. DISPOSITION: Mother and baby to stay in the room to initiate bonding. [facility] /[id number]
[2020-10-23] MEDS: Ibuprofen 800 MG Tab PO PRN ×2 (06:00→20:25)
--- NOTE | 2020-10-23 06:02 | PN ---
DATE: 10/23/2020 SUBJECTIVE: day #1 status post spontaneous vaginal delivery. The patient is doing well, ambulating, tolerating regular diet, voiding. Has not yet had a bowel movement. No chest pain or shortness of breath. Attempted a couple of times, but does not feel like her milk is in, so she is bottle feeding her baby. Denies any other acute concerns or problems and is feeling well today. OBJECTIVE: Vital Signs: Temperature 98.8, pulse 64, blood pressure 131/71, respiratory rate of 16, O2 saturations 100% on room air. Heart: Regular without murmur. Lungs: Clear to auscultation bilaterally. Abdomen: Soft and nontender. Fundus is firm and below the umbilicus. Extremities: No edema, erythema, or tenderness noted. LABORATORY DATA: Morning labs have not yet been drawn. ASSESSMENT: 1. Status post vaginal delivery, day #1. 2. 5, now para 3-0-2-3, delivered at 40-1/7 weeks' gestation. 3. High-risk . 4. Blood type A negative. RhoGAM has been ordered. 5. Anxiety and depression. 6. Hepatitis C. 7. Marijuana use. 8. Chlamydia, last treated 2 weeks prior to delivery. PLAN: Continue normal cares. Anticipating discharge home tomorrow since the patient delivered later in the evening last night. [facility] /[id number]
[2020-10-23] MEDS: Prenatal Multivitamin with Calcium/Folic Acid/Iron Tab PO SCH (08:19)
[2020-10-23] MEDS: Ferrous Sulfate 325 MG Tab PO SCH (08:19)
[2020-10-23] MEDS: Acetaminophen 325 MG Tab PO PRN (11:35)
[2020-10-23] MEDS: Docusate Sodium 100 MG Cap PO PRN (20:25)
[2020-10-24] MEDS: Ferrous Sulfate 325 MG Tab PO SCH (08:43)
[2020-10-24] MEDS: Prenatal Multivitamin with Calcium/Folic Acid/Iron Tab PO SCH (08:43)
[2020-10-24 10:16] VITALS: BP 115/87; PULSE 75
== END 2020-10-24 13:30 | disposition home or self-care (01) | DRG 806 ==
LOC: DL.OB 07:40 → OBSVTOIN 17:00 → DL.OB 17:49 → DL.MS 10-23 15:01
PROVIDERS: ADMIT Family Medicine; ATTEND Family Medicine
PROC: 10E0XZZ Delivery of Products of Conception, External Approach (ICD-10-PCS; principal; 2020-10-22)
PROC: 10907ZC Drainage of Amniotic Fluid, Therapeutic from Products of Conception, Via Natural or Artificial Opening (ICD-10-PCS; 2020-10-22)
PROC: 3E0234Z Introduction of Serum, Toxoid and Vaccine into Muscle, Percutaneous Approach (ICD-10-PCS; 2020-10-22)
DX: O48.0 Post-term pregnancy (principal); O99.324 Drug use complicating childbirth; Z37.0 Single live birth; O99.344 Other mental disorders complicating childbirth; F41.9 Anxiety disorder, unspecified; F32.9 Major depressive disorder, single episode, unspecified; F12.90 Cannabis use, unspecified, uncomplicated; O26.843 Uterine size-date discrepancy, third trimester; Z20.822 Contact with and (suspected) exposure to COVID-19; Z23 Encounter for immunization; Z3A.40 40 weeks gestation of pregnancy
CPT/HCPCS: 36415; 59409; 85027; 85461; 86850; 86900; 86901; 90471; 90707; A9270-GY; J2210; J2590; J2790; J3010; J7120; U0002

== ENCOUNTER 2022-07-26 16:17 | Emergency (ER) | payer BC, OTHER ==
[2022-07-26 16:26] VITALS: BP 130/80; PULSE 90
[2022-07-26] MEDS ORDERED: Sodium Chloride 0.9% 10 ML Syringe FLUSH PRN (16:40)
[2022-07-26] MEDS ORDERED: Piperacillin/Tazobactam 4.5 GM in Sodium Chloride 0.9% 100 ML IV ONE (16:43)
[2022-07-26] MEDS ORDERED: metroNIDAZOLE 250 MG Tab PO ONE (16:45)
[2022-07-26 17:27] LABS: ANION GAP 14.5 mEq/L (7-13)
== END 2022-07-26 18:06 ==
LOC: DL.ED 16:17
DX: N76.0 Acute vaginitis (principal); K37 Unspecified appendicitis; B96.89 Other specified bacterial agents as the cause of diseases classified elsewhere; Z91.040 Latex allergy status
CPT/HCPCS: 36415; 80048; 85025; 87040; 96365; 99284; A9270; J2543; J3490